=== PATIENT | female | born 1995 | race Caucasian/White ===

== ENCOUNTER 2023-08-10 16:48 | Emergency (ER) | payer OTHER, SELFPAY ==
--- NOTE | 2023-08-10 16:50 | ED.SKABFB ---
HPI - Skin/Abscess/Foreign Bdy General Chief complaint: Animal Bite Stated complaint: Cat Bite Right Arm Time Seen by Provider: 08/10/23 17:02 Source: patient and RN notes reviewed Mode of arrival: ambulatory Limitations: dementia History of Present Illness HPI narrative: 28-year-old female presents concern for cat bite to her right arm. She reports earlier today she was attempting to feed a stray cat when it ?attacked?. She has scratch arreaga and bite arreaga to her right arm. She reports 1 of the areas is surrounded by redness. She denies fever, body aches, chills, sweats complaint: other (Cat bite) Related Data Home Medications Medication Instructions Recorded Confirmed norgestimate 0.25 mg-ethinyl 1 tablet PO DAILY 08/10/23 08/10/23 estradiol 35 mcg tablet (Estarylla) Allergies Allergy/AdvReac Type Severity Reaction Status Date / Time prednisone Allergy Hives Verified 08/10/23 17:03 Review of Systems Review of Systems: CONSTITUTIONAL: Denies malaise, chills, sweats, or fever. EYES: Denies redness, or discharge. ENT: Denies rhinorrhea, congestion, swollen lips, swollen tongue CARDIOVASCULAR: Denies chest pain, palpitations, or edema. RESPIRATORY: Denies cough or dyspnea. GASTROINTESTINAL: Denies abdominal pain, nausea, vomiting SKIN: Reports redness, swelling around a cat bite on her right arm. Reports cat scratches on her right arm. Denies purulent drainage, vesicles, bullae, numbness, pain beyond proportion MUSCULOSKELETAL: Denies joint pain or myalgia. NEUROLOGIC: Denies headache. All systems reviewed & are unremarkable except as noted in HPI and below PMFSH Comments At time of signature, agree with nursing past medical, surgical, social and family history. There is no relevant family history pertinent to the presenting complaint Exam Narrative: GENERAL: Well-appearing, well-nourished, and in no acute distress. HEAD: Normocephalic, atraumatic. EYES: PERRLA, conjunctivae clear ENT: Mucous membranes moist. NECK: Supple. No lymphadenopathy CHEST: Clear to auscultation. No respiratory distress. HEART: Regular rate and rhythm. SKIN: Warm, dry. Puncture site on the right upper arm surrounded by approximate 3 cm of erythema, induration, warmth with sharp margins noted. Scattered scabbed to scratches noted to the right arm. No vesicles, bullae, necrosis, ecchymosis, crepitus noted. NEURO: Alert and oriented x3. PSYCH: Normal mood and affect Course Course Emergency Course: Patient was advised about seeking rabies vaccine if animal controlled unable to locate cat tomorrow. Patient is aware of diagnosis, understands and agrees to treatment plan. Anticipatory guidance given. Patient agrees to follow-up as directed and is aware of reasons to seek care at the emergency department. Portions of this record may have been created with voice recognition software Level of Care: Express Care Visit Vital Signs Vital signs: Reviewed. MDM - Skin/Abscess/Foreign Bdy MDM Narrative Medical decision making narrative: Does not appear at this time to be erythema multiforme, bullous, SJS, TEN; no evidence at this time to suggest RMSF, NSTI, endocarditis or Lyme disease; patient looks well, nontoxic and is tolerating oral intake; no neurologic signs or symptoms; no headache, photophobia or neck pain; afebrile. Patient does not have history of of penetrating trauma, laceration, blunt trauma, recent surgery, immunosuppression, malignancy, obesity, alcoholism, corticosteroid use. Discussed the importance of follow-up, patient agrees; question, cellulitis versus necrotizing soft tissue infection versus abscess. Critical Care Time Critical Care Time Critical Care Time: No Discharge Plan Discharge Clinical Impression: Cat bite Patient Disposition: Home, Self-Care Condition: Stable Instructions: Antibiotic Form, Animal Bite (ED) Additional Instructions: Call animal control in the morning. If
[2023-08-10 16:56] VITALS: BP 131/67; PULSE 68; RESP 14; TEMP 36.4; O2SAT 98
== END 2023-08-10 17:13 | disposition home or self-care (01) ==
PROVIDERS: Emergency Provider Nurse Practitioner
DX: S41.151A Open bite of right upper arm, initial encounter (principal); W55.01XA Bitten by cat, initial encounter; J45.909 Unspecified asthma, uncomplicated
CPT/HCPCS: 99213; G0463

== ENCOUNTER 2023-08-31 11:34 | Emergency (ER) | payer OTHER, SELFPAY ==
[2023-08-31] VITALS (7 sets, daily range): BP systolic 122–144; BP diastolic 62–89; PULSE 64–95; RESP 17–18; TEMP 36.7–37.4; O2SAT 96–100
--- NOTE | ~2023-08-31 | CT_ITS ---
EXAMINATION: CT abdomen pelvis w con INDICATION: Abdominal pain TECHNIQUE: Computed tomographic images of the abdomen and pelvis were obtained after the administrati on of 100 cc of Omnipaque 350 intravenous contrast. The dose-length product (DLP) was 285.69 mGy-cm. Automated exposure control and iterative reconstruction technique were employed. COMPARISON: None available FINDINGS: The lung bases are clear. The heart size is normal. Changes of cholecystectomy are noted. T he liver, spleen, pancreas, and adrenal glands are normal. The kidneys are unremarkable. No pathologi yamilet enlarged abdominal or pelvic lymph nodes are identified. No free intraperitoneal gas or evidenc e of bowel obstruction. There are changes of posterior fusion at T11-12 and L2 with a burst fracture of L1 noted. IMPRESSION: 1. No CT correlate for the patient's symptoms. Reviewed, dictated and finalized at location F. SCRAPER
--- NOTE | 2023-08-31 11:52 | ED.ABDPAIN ---
HPI - Abdominal Pain General Chief Complaint: Abdominal Pain Stated Complaint: vomiting/ abd pain Time Seen by Provider: 08/31/23 11:51 History of Present Illness HPI narrative: patient is a 28-year-old female with history of chronic back and neck pain after multiple prior fractures here today with abdominal pain. She states that the abdominal pains improvement for about 5-7 days. She notes that about 4 days ago she was seen at an outside emergency department and diagnosed with the UTI and started on an unknown antibiotic. She notes that she has been compliant with this antibiotic but continues to have abdominal pain. Abdominal pain seems he located in the suprapubic and mid abdominal regions, Is severe and she is tearful during history due to the pain. She has had associated vomiting as well as diarrhea. She denies any other sick contacts. She denies cough, congestion. She does note that she has been having a subjective fever but has not checked her temperature. she denies dysuria at this time. She has been compliant with her antibiotics at home. Related Data Home Medications Medication Instructions Recorded Confirmed norgestimate 0.25 mg-ethinyl 1 tablet PO DAILY 08/10/23 08/10/23 estradiol 35 mcg tablet (Estarylla) Allergies Allergy/AdvReac Type Severity Reaction Status Date / Time prednisone Allergy Hives Verified 08/10/23 17:03 Review of Systems Review of Systems: All systems reviewed & are unremarkable except as noted in HPI and below Exam Narrative: GENERAL: Well-appearing, well-nourished, and in no acute distress. HEAD: Normocephalic, atraumatic. EYES: PERRLA and EOMI. ENT: Nares clear. Mucous membranes moist. NECK: Supple. CHEST: Clear to auscultation. No respiratory distress. HEART: Regular rate and rhythm. Normal peripheral pulses. ABDOMEN: Soft, diffusely tender worse in the suprapubic and periumbilical regions, no rebound or guarding appreciated. bilateral CVA tenderness however she does note that she has chronic pain in this area due to her prior back surgeries. EXTREMITIES: Normal range of motion. No edema. SKIN: Warm, dry, no rash. NEURO: No focal deficits. Alert and oriented x3. PSYCH: Normal mood and affect. Course Course Emergency Course: Chart review performed. Patient is here for abdominal pain and vomiting. She was reportedly seen at outside hospital and diagnosed with UTI, discharged on antibiotics however I cannot see this visit in our system. Patient has one prior visit here in our department for a cat bite a few weeks ago. Triage vitals normal. Initial triage protocol lab work reviewed showing no leukocytosis, normal electrolytes, normal renal function, LFTs within normal limits. UA shows 6-10 WBC with rare bacteria. This could suggest a partially treated UTI as she is reportedly already on antibiotics. No UA comparison from prior to antibiotic administration. On review of her prior discharge paperwork it appears she is on Bactrim. CT negative. Will reevaluate. Patient re-evaluated, feeling much better. Will discharge on Levsin, ibuprofen, Zofran. Advised to continue taking her antibiotics. The results of pertinent diagnostic studies and exam findings were discussed. The patient?s provisional diagnosis and plan of care were discussed with the patient and present family. The patient and/or present family expressed understanding of the diagnosis and plan. The nurse was instructed to provide written instructions and appropriate follow-up information. The patient understands their need and responsibility to obtain additional follow-up as instructed. The risks of medications administered and prescribed were discussed with the patient and family present. Vital Signs Vital signs: Vital Signs Temperature 99.3 F 08/31/23 11:38 Pulse Rate 95 08/31/23 11:38 Respiratory Rate 17 08/31/23 11:38 Blood Pressure 144/89 H 08/31/23 11:38 Pulse Oximetry 97 08/31/23 11
[2023-08-31 11:54] LABS: Basophils Absolute Auto 0.1 K/mm3 (0.0-0.1); Basophils Percent Auto 0.6 % (0.2-1.2); Eosinophils Percent Auto 0.1 % (0-4.4); Hematocrit 44.5 % (37.0-47.0); Hemoglobin 14.8 g/dL (12.0-15.0); Immature Granulocyte Absolute 0.02 K/mm3 (0.00-0.031); Immature Granulocyte Percent A 0.2 % (0-0.5); Lymphocytes Absolute Auto 2.02 K/mm3 (0.9-3.2); Lymphocytes Percent Auto 23.6 % (18.3-44.2); Mean Corpuscular HGB Conc 33.3 g/dl (32-36); Mean Corpuscular Volume 90.3 fl (80-100); Mean Platelet Volume 8.8 fl (7.4-10.4); Monocytes Absolute Auto 0.6 K/mm3 (0.1-0.6); Monocytes Percent Auto 6.7 % (2.6-8.5); Neutrophils Absolute Auto 5.9 K/mm3 (1.3-6.7); Neutrophils Percent Auto 68.8 % (45.5-73.1); Platelet Count Result 441 k/mm3 (150-375); Red Blood Count 4.93 M/mm3 (4.2-5.4); White Blood Count 8.6 K/mm3 (4.5-10.0)
[2023-08-31 11:58] LABS: Appearance Urine Cloudy (Clear); Bacteria Urine Rare /hpf; Bilirubin Urine Negative (Negative); Blood Urine Negative (Negative); Color Urine Dark Yellow (Yellow); Glucose Urine UA Negative (Negative); Ketones Urine 1+ mg/dL (Negative); Leukocyte Esterase Ur Negative LEU/UL (Negative); Nitrate Urine Negative (Negative); Protein Urine 1+ mg/dL (Negative); RBC Urine 0-2 /hpf (0-2); Squamous Epithelial Cell Urine Moderate /hpf (Few)
[2023-08-31 12:06] LABS: Alanine Aminotransferase 21 U/L (6-35); Alkaline Phosphatase 91 U/L (38-126); Anion Gap 9 mmol/L (8-16); Aspartate Amino Transferase 22 U/L (14-36); Bilirubin,Total 1.3 mg/dL (0.2-1.3); Blood Urea Nitrogen 11 mg/dL (7-17); Calcium 9.8 mg/dL (8.4-10.2); Carbon Dioxide 28 mmol/L (22-30); Chloride 103 mmol/L (98-107); Estimated CRCL calculation 87 ml/min; Estimated Glomerular Filt Rate > 60; Glucose 123 mg/dL (65-110); Lipase 52 U/L (23-300); Potassium 3.7 mmol/L (3.4-5.0); Sodium 140 mmol/L (137-145)
[2023-08-31 12:12] LABS: Add Urine Microscopic? YES
[2023-08-31] MEDS: ONDANSETRON INJ 4 MG/2 ML VIAL IV PUSH (12:46)
[2023-08-31] MEDS: LACTATED RINGERS 1,000 ML 999 ML IV CONT (12:47)
[2023-08-31] MEDS: MORPHINE SULFATE (*CRX) 4 MG/ML INJ IV PUSH (12:47)
[2023-08-31] MEDS: PANTOPRAZOLE SODIUM IV 40 MG VIAL IV PUSH (12:47)
[2023-08-31] MEDS: diphenhydrAMINE HCl INJ 50 MG/ML VIAL 25 MG IV PUSH (13:10)
[2023-08-31 13:14] LABS: Influenza A QL RT-PCR Negative (Negative); Influenza B QL RT-PCR Negative (Negative); RSV RNA, RT-PCR Negative (Negative); SARS-CoV-2 RNA PCR Negative (Negative)
[2023-08-31] MEDS: HYDROmorphone HCL INJ (*CRX) 1 MG/ML SYR IV PUSH (13:34)
[2023-08-31] MEDS: DICYCLOMINE HCL INJ 20 MG/2 ML VIAL IM (14:01)
== END 2023-08-31 14:51 | disposition home or self-care (01) ==
PROVIDERS: Emergency Medicine; Emergency Provider Student in an Organized Health Care Education/Training Program
DX: R10.84 Generalized abdominal pain (principal); R11.2 Nausea with vomiting, unspecified; R19.7 Diarrhea, unspecified; N39.0 Urinary tract infection, site not specified; Z20.822 Contact with and (suspected) exposure to COVID-19
CPT/HCPCS: 36415; 74177; 80053; 81001; 81025; 83690; 85025; 87086; 87637; 96361; 96372; 96374; 96375; 99284; C9113; J0500; J1170; J1200; J2270; J2405; J7120; Q9967

== ENCOUNTER 2023-10-10 10:30 | Outpatient (CLI) | payer OTHER, SELFPAY ==
--- NOTE | ~2023-10-10 | XR_ITS ---
EXAMINATION:XR_[id number]_[id number] DATE: 10/10/2023 10:54 INDICATION: Neck pain TECHNIQUE: AP, lateral, lateral swimmers and odontoid views of the cervical spine are provided. COMPARISON: None FINDINGS: Alignment is normal. The odontoid process is intact. No fracture is identified. There are c hanges of anterior and posterior fusion from C5 through C7. There are corpectomy changes with mechani tavon replacement at C6. Prevertebral soft tissues are normal. IMPRESSION: 1. Surgical changes without acute findings identified. Reviewed, dictated and finalized at location F. SAFETY MANAGER
--- NOTE | ~2023-10-10 | XR_ITS ---
XR lumbar spine 2-3V DATE: 10/10/2023 10:54 INDICATION: Back pain. History of back surgery in 2020. TECHNIQUE: AP, lateral, coned lateral lumbosacral views COMPARISON: None FINDINGS: Status post posterior surgical fusion by Ran screws and rods at T11-L2. The pedicle scr ews are present bilaterally at T11, T12 and L2. Mild anterior wedge compression fracture deformity, likely chronic, at T10. There is prominent loss of height and anterior wedging due to burst fracture of L1 with up to 50% los s of height anteriorly. No fracture of the remainder of the lumbar spine. Moderate degenerative disc disease at T12-L1. Lumbar and lumbosacral interspaces appear relatively pr eserved. The sacroiliac joints are intact. Status post cholecystectomy. IMPRESSION: Mild anterior wedge compression fracture T10, likely chronic Chronic prominent burst fracture of L1 Status post posterior surgical fusion at T11-L2 Reviewed, dictated and finalized at location B. PRESIDENT QUALITY IMPROVEMENT
--- NOTE | ~2023-10-10 | XR_ITS ---
XR chest 2V DATE: 10/10/2023 10:54 INDICATION: Back pain. TECHNIQUE: PA and lateral views COMPARISON: None FINDINGS: Normal heart size. No hilar or mediastinal enlargement. No pulmonary infiltrate or consolid ation, pleural effusion or pulmonary vascular congestion or pneumothorax. Status post anterior and posterior cervical spine surgical fusion. Status post posterior thoracolumbar surgical fusion. Prominent probable burst fracture of L1 lumbar v ertebral body. IMPRESSION: No active cardiopulmonary disease Reviewed, dictated and finalized at location B. BASKET TOP MAKER
== END 2023-10-10 10:31 | disposition home or self-care (01) ==
PROVIDERS: Visit Provider Emergency Medicine
DX: S22.070A Wedge compression fracture of T9-T10 vertebra, initial encounter for closed fracture (principal); S32.011A Stable burst fracture of first lumbar vertebra, initial encounter for closed fracture; F17.210 Nicotine dependence, cigarettes, uncomplicated; X58.XXXA Exposure to other specified factors, initial encounter; Z98.1 Arthrodesis status
CPT/HCPCS: 71046; 72040; 72100

== ENCOUNTER 2023-10-16 09:27 | Emergency (ER) | payer OTHER, SELFPAY ==
[2023-10-16 09:28] VITALS: BP 147/109; PULSE 102; RESP 20; TEMP 36.9; O2SAT 100
[2023-10-16] MEDS: KETOROLAC 30 MG/ML VIAL (*BKC) IV PUSH (10:56)
[2023-10-16] MEDS: diazePAM INJ (*CRX) 10 MG/2 ML SYRINGE 5 MG IV PUSH (10:56)
[2023-10-16] MEDS: HYDROmorphone HCL INJ (*CRX) 1 MG/ML SYR IV PUSH (11:50)
[2023-10-16] MEDS: SODIUM CHLORIDE 0.9% IV 1,000 ML 999 ML IV CONT (11:50)
[2023-10-16 11:52] LABS: Basophils Absolute Auto 0.1 K/mm3 (0.0-0.1); Basophils Percent Auto 0.5 % (0.2-1.2); Eosinophils Absolute Auto 0.1 K/mm3 (0-0.3); Eosinophils Percent Auto 0.6 % (0-4.4); Hematocrit 42.6 % (37.0-47.0); Immature Granulocyte Absolute 0.05 K/mm3 (0.00-0.031); Immature Granulocyte Percent A 0.5 % (0-0.5); Lymphocytes Percent Auto 23.5 % (18.3-44.2); Mean Corpuscular HGB Conc 32.9 g/dl (32-36); Mean Corpuscular Hemoglobin 30.5 pg (26-34); Mean Corpuscular Volume 92.8 fl (80-100); Mean Platelet Volume 9.5 fl (7.4-10.4); Monocytes Absolute Auto 0.6 K/mm3 (0.1-0.6); Monocytes Percent Auto 5.7 % (2.6-8.5); Neutrophils Absolute Auto 7.1 K/mm3 (1.3-6.7); Neutrophils Percent Auto 69.2 % (45.5-73.1); Platelet Count Result 338 k/mm3 (150-375); Red Blood Count 4.59 M/mm3 (4.2-5.4); Red Cell Distribution Width 11.9 % (11.5-14.5); White Blood Count 10.2 K/mm3 (4.5-10.0)
[2023-10-16 12:06] LABS: Alanine Aminotransferase 26 U/L (6-35); Albumin Level 4.3 g/dL (3.5-5.1); Alkaline Phosphatase 90 U/L (38-126); Anion Gap 11 mmol/L (8-16); Aspartate Amino Transferase 28 U/L (14-36); Blood Urea Nitrogen 11 mg/dL (7-17); CRP < 0.5 mg/dL (<1.0); Calcium 9.3 mg/dL (8.4-10.2); Carbon Dioxide 24 mmol/L (22-30); Chloride 106 mmol/L (98-107); Estimated CRCL calculation 100 ml/min; Estimated Glomerular Filt Rate > 60; Glucose 139 mg/dL (65-110); Potassium 3.9 mmol/L (3.4-5.0); Sodium 141 mmol/L (137-145)
[2023-10-16 12:24] LABS: Erythrocyte Sedimentation Rate 12 mm/hr (0-20)
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
[2023-10-16] MEDS: GABAPENTIN 300 MG CAPSULE PO (13:30)
[2023-10-16 13:41] VITALS: BP 114/80; PULSE 85; RESP 16; O2SAT 98
== END 2023-10-16 13:43 | disposition home or self-care (01) ==
PROVIDERS: Emergency Provider Emergency Medicine; PCP Emergency Medicine
DX: G62.9 Polyneuropathy, unspecified (principal); M54.9 Dorsalgia, unspecified; G89.29 Other chronic pain
CPT/HCPCS: 36415; 80053; 85025; 85652; 86140; 99283; A9270; J1170; J1885; J3360; J7030

== ENCOUNTER 2023-11-24 18:38 | Emergency (ER) | payer OTHER, SELFPAY ==
[2023-11-24 18:52] VITALS: BP 139/66; PULSE 90; RESP 16; TEMP 37.1; O2SAT 100
--- NOTE | 2023-11-24 19:41 | ED.URI ---
HPI - URI/Sore Throat General Chief Complaint: Upper Respiratory Infection Stated Complaint: Cold symptoms Time Seen by Provider: 11/24/23 19:32 Source: patient and RN notes reviewed Mode of arrival: ambulatory Limitations: no limitations History of Present Illness HPI Narrative: Patient presents today complaining of congestion, bilateral ear pain, cough, sore throat, shortness of breath. Symptoms began today. Denies fever. She has tried Mucinex and DayQuil as well as her albuterol inhaler. States the albuterol inhaler has been helpful. History of asthma. States she is allergic to prednisone. Related Data Home Medications Medication Instructions Recorded Confirmed norgestimate 0.25 mg-ethinyl 1 tablet PO DAILY 08/10/23 08/10/23 estradiol 35 mcg tablet (Estarylla) albuterol 11/24/23 duloxetine 30 mg capsule,delayed mg PO 11/24/23 release Allergies Allergy/AdvReac Type Severity Reaction Status Date / Time cyclobenzaprine AdvReac Nausea and Verified 10/16/23 09:55 [From Flexeril] Vomiting prednisone AdvReac Hives Verified 10/16/23 09:55 Review of Systems Review of Systems: CONSTITUTIONAL: Denies body aches, fever, chills, or sweats. EYES: Denies visual changes, redness, or discharge. ENT: Denies rhinorrhea. + congestion, bilateral ear pain, sore throat CARDIOVASCULAR: Denies chest pain, palpitations, or edema. RESPIRATORY:+ cough, shortness of breath GASTROINTESTINAL: Denies abdominal pain, nausea, vomiting, or diarrhea. GENITOURINARY: Denies dysuria or hematuria. SKIN: Denies rash, itching, or wounds. MUSCULOSKELETAL: Denies back pain, joint pain, or myalgia. NEUROLOGIC: Denies headache, numbness, tingling, or weakness. PSYCH: Denies depression or anxiety. [facility] Past Medical History Medical History (Updated 11/24/23 @ 19:46 by Susana Jansen, SHAHANA, JEANNINE) Asthma Healthy female adult Surgical History Surgical History H/O neck surgery History of back surgery Comments At time of signature, I have reviewed and agree with nursing past medical, surgical, social and family history unless otherwise noted. Please see nursing chart for further information. There is no relevant family history pertinent to the presenting complaint Exam Narrative: GENERAL: Well-appearing, well-nourished, and in no acute distress. HEAD: Normocephalic, atraumatic. EYES: EOMI. No redness or drainage. Conjunctivae normal. ENT: Mucous membranes pink and moist. Nares congested. No rhinorrhea. TMs normal bilaterally. Throat normal. Uvula midline. NECK: Normal AROM. Supple. No lymphadenopathy. CHEST: No respiratory distress. Clear to auscultation. HEART: Regular rate and rhythm. No murmur appreciated. EXTREMITIES: Normal range of motion. No edema. SKIN: Warm, dry, no rash. Capillary refill normal. Normal skin turgor. NEURO: No focal deficits. Alert and oriented x3. Gait steady. PSYCH: Normal affect. No signs of depression or anxiety. Course Course Level of Care: Express Care Visit Vital Signs Vital signs: Vital Signs Temperature 98.8 F 11/24/23 18:52 Pulse Rate 90 11/24/23 18:52 Respiratory Rate 16 11/24/23 18:52 Blood Pressure 139/66 11/24/23 18:52 Pulse Oximetry 100 11/24/23 18:52 Oxygen Delivery Room Air 11/24/23 18:52 Temperature 98.8 F 11/24/23 18:52 Pulse Rate 90 11/24/23 18:52 Respiratory Rate 16 11/24/23 18:52 Blood Pressure 139/66 11/24/23 18:52 Pulse Oximetry 100 11/24/23 18:52 Oxygen Delivery Room Air 11/24/23 18:52 Reviewed MDM - URI/Sore Throat MDM Narrative Medical decision making narrative: Testing negative. Will refill patient's albuterol inhaler. Symptoms likely viral. Discussed [id number] medication and duration of illness. Anticipatory guidance given. Differential Diagnosis Differential diagnosis: Likely upper respiratory infection, viral infection,
== END 2023-11-24 19:50 | disposition home or self-care (01) ==
PROVIDERS: Emergency Provider Nurse Practitioner; PCP Emergency Medicine
DX: J06.9 Acute upper respiratory infection, unspecified (principal); J45.901 Unspecified asthma with (acute) exacerbation; Z20.822 Contact with and (suspected) exposure to COVID-19
CPT/HCPCS: 87081; 87426; 87804; 87880; 99213; G0463

== ENCOUNTER 2024-01-26 16:43 | Emergency (ER) | payer OTHER, SELFPAY ==
[2024-01-26 16:52] VITALS: BP 161/83; PULSE 113; RESP 16; TEMP 36.3; O2SAT 97
--- NOTE | 2024-01-26 17:29 | ED.EAR ---
HPI - Ear Problem General Chief complaint: Skin/Abscess/Foreign Body Stated complaint: left pinky finger/left ear Source: patient Mode of arrival: ambulatory Limitations: no limitations History of Present Illness HPI Narrative: 29 y/o female presented for c/o right ear pressure x one week. Denies significant pain, reports hearing is muffled. denies ear drainage, tinnitus, dizziness, nausea, vomiting, fevers or chills. Taking tylenol and aleve. Pt also here for left little finger sore and pain. Onset one month, was told by [facility] she might have MRSA infection. States 2 days ago she bumped it and then it drained yellow pus and the skin has been peeling. Continues to have pain to the finger tip described as pulsing and rates 9/10. MD Complaint: ear pain Related Data Home Medications Medication Instructions Recorded Confirmed albuterol sulfate 90 mcg/actuation 2 puff inhalation QID PRN sob 01/26/24 01/26/24 aerosol inhaler desogestrel 0.15 mg-ethinyl See Rx Instructions .Route .COMPLEX 01/26/24 01/26/24 estradiol 0.03 mg tablet (Isibloom) Allergies Allergy/AdvReac Type Severity Reaction Status Date / Time cyclobenzaprine AdvReac Nausea and Verified 01/26/24 16:55 [From Flexeril] Vomiting prednisone AdvReac Hives Verified 01/26/24 16:55 Review of Systems Review of Systems: CONSTITUTIONAL: Denies malaise, chills, or fever. EYES: Denies visual changes, redness, or discharge. ENT: Denies rhinorrhea, congestion, sinus pain, and sore throat. Reports ear pain CARDIOVASCULAR: Denies chest pain, palpitations, or edema. RESPIRATORY: Denies cough or dyspnea. GASTROINTESTINAL: Denies abdominal pain, nausea, vomiting, diarrhea SKIN: reports little finger wound MUSCULOSKELETAL: Denies myalgia. NEUROLOGIC: Denies headache. All systems reviewed & are unremarkable except as noted in HPI and below PMFSH Past Medical History Medical History Asthma Healthy female adult Surgical History Surgical History H/O neck surgery History of back surgery Comments At time of signature, agree with nursing past medical, surgical, social and family history. There is no relevant family history pertinent to the presenting complaint Exam Narrative: GENERAL: Well-appearing EYES: PERRLA, conjunctivae clear ENT: Nares clear. Mucous membranes moist. left TM pearly haley with dull light reflex right TM mildly erythematous with clear effusion; no tragal tenderness. Oropharynx not erythematous without lesions. Tonsils not enlarged and without exudate, no drooling, no hoarseness, no trismus, uvula midline. NECK: Supple. No lymphadenopathy CHEST: Clear to auscultation, breath sounds equal. No wheezing, rhonchi, rales, or stridor. No respiratory distress, speaks in full sentences. HEART: Regular rate and rhythm. No murmur heard. SKIN: Warm, dry, Left 5th digit distal phalanx with peeling dry flaky skin, area of erythema near nail bed; nail cut to approx half the size, no active drainage , fluctuance, or swelling, site is tender NEURO: Alert and oriented x3. PSYCH: became tearful during encounter states she feels exhausted Course Course Emergency Course: Patient is aware of diagnosis, understands and agrees to treatment plan. Anticipatory guidance given. Patient agrees to follow-up as directed and is aware of reasons to seek care at the emergency department. Portions of this record may have been created with voice recognition software Level of Care: Express Care Visit Vital Signs Vital signs: Vital Signs Temperature 97.4 F L 01/26/24 16:52 Pulse Rate 113 H 01/26/24 16:52 Respiratory Rate 16 01/26/24 16:52 Blood Pressure 161/83 H 01/26/24 16:52 Pulse Oximetry 97 01/26/24 16:52 Oxygen Delivery Room Air 01/26/24 16:52 Temperature 97.4 F L 01/26/24 16:52 Pulse Rate 113 H 01/26/24 16:52 Respir
== END 2024-01-26 17:45 | disposition home or self-care (01) ==
PROVIDERS: Emergency Provider Nurse Practitioner Family; PCP Emergency Medicine
DX: H65.02 Acute serous otitis media, left ear (principal); J45.909 Unspecified asthma, uncomplicated
CPT/HCPCS: 99213; G0463

== ENCOUNTER 2024-04-21 10:42 | Emergency (ER) | payer OTHER, SELFPAY ==
--- NOTE | ~2024-04-21 | CT_ITS ---
CT of the Abdomen and Pelvis: Indication: Abdominal pain Technique: 2.5 mm axial scans were obtained through the abdomen and pelvis following intravenous adm inistration of 100 cc of Omnipaque 350. Dose reduction technique was used on this scan by utilizing a utomated exposure control and iterative reconstruction technique. The dose-length product (DLP) was 2 48.97 mGy-cm. COMPARISON: 08/31/2023 Findings: Scans through the lung bases are unremarkable. The liver, spleen, pancreas, adrenals and kidneys are within normal limits. Cholecystectomy clips are present. No evidence of aortic aneurysm. No lymphadenopathy. No bowel obstruction or bowel wall thickening. There is no evidence to suggest acute appendicitis. Images through the pelvis were performed. Urinary bladder unremarkable. No pelvic mass seen. No ascit es. There is L1 compression fracture, with surrounding posterior thoracolumbar spinal fixation delon re. Impression: No acute abnormality. Reviewed, dictated and finalized at [facility]. Impression: No acute abnormality.
[2024-04-21 10:44] VITALS: BP 138/77; PULSE 82; RESP 16; TEMP 36.4; O2SAT 100
[2024-04-21 11:57] LABS: Basophils Percent Auto 0.6 % (0.2-1.2); Eosinophils Absolute Auto 0.1 K/mm3 (0-0.3); Eosinophils Percent Auto 0.8 % (0-4.4); Hematocrit 39.3 % (37.0-47.0); Hemoglobin 13.3 g/dL (12.0-15.0); Immature Granulocyte Absolute 0.01 K/mm3 (0.00-0.031); Immature Granulocyte Percent A 0.2 % (0-0.5); Lymphocytes Absolute Auto 2.48 K/mm3 (0.9-3.2); Mean Corpuscular HGB Conc 33.8 g/dl (32-36); Mean Corpuscular Hemoglobin 30.8 pg (26-34); Mean Platelet Volume 9.7 fl (7.4-10.4); Monocytes Absolute Auto 0.4 K/mm3 (0.1-0.6); Neutrophils Absolute Auto 3.6 K/mm3 (1.3-6.7); Neutrophils Percent Auto 54.4 % (45.5-73.1); Platelet Count Result 353 k/mm3 (150-375); Red Blood Count 4.32 M/mm3 (4.2-5.4); Red Cell Distribution Width 12.2 % (11.5-14.5); White Blood Count 6.5 K/mm3 (4.5-10.0)
[2024-04-21 12:07] LABS: Alanine Aminotransferase 18 U/L (6-35); Albumin Level 4.4 g/dL (3.5-5.1); Alkaline Phosphatase 72 U/L (38-126); Anion Gap 10 mmol/L (4-12); Aspartate Amino Transferase 25 U/L (14-36); Bilirubin,Total 0.7 mg/dL (0.2-1.3); Blood Urea Nitrogen 11 mg/dL (7-17); Carbon Dioxide 26 mmol/L (22-30); Chloride 102 mmol/L (98-107); Estimated CRCL calculation 111 ml/min; Estimated Glomerular Filt Rate > 60; Glucose 99 mg/dL (65-110); Lipase 51 U/L (23-300); Potassium 4.1 mmol/L (3.4-5.0); Sodium 138 mmol/L (137-145)
--- NOTE | 2024-04-21 12:50 | ED.ABDPAIN ---
HPI - Abdominal Pain General Chief Complaint: Abdominal Pain Stated Complaint: abd pain Time Seen by Provider: 04/21/24 11:24 Source: patient and other (PCP Dr Cordova) Mode of arrival: ambulatory Limitations: no limitations History of Present Illness HPI narrative: Primary care physician Dr. Rutherford it had given provider report prior to patient's arrival. Noted that patient had been having right lower quadrant pain for which she had yesterday and had been encouraged to present to the emergency department at that time. Patient had declined and he had recommended that she come into clinic today to be seen. He is subsequently recommended she present to emergency department for continued workup. Patient has been having abdominal pain, initially at the umbilicus in subsequently traveling to the right lower quadrant. She states it is worse with walking worse with cough. Symptoms have been occurring over the past 3 days but are getting worse. She denies any fever. She has no appetite. She has been nauseated and had 5 episodes emesis yesterday that were nonbloody but questionably bilious as she states they were dark green. Her last bowel movement yesterday was loose but formed. She continues to pass flatus. She denies any vaginal discharge or bleeding. No history of sexually transmitted infections. Last menstrual period 2 weeks ago.. Related Data Home Medications Medication Instructions Recorded Confirmed albuterol sulfate 90 mcg/actuation 2 puff inhalation QID PRN sob 01/26/24 01/26/24 aerosol inhaler desogestrel 0.15 mg-ethinyl See Rx Instructions .Route .COMPLEX 01/26/24 01/26/24 estradiol 0.03 mg tablet (Isibloom) Allergies Allergy/AdvReac Type Severity Reaction Status Date / Time cyclobenzaprine AdvReac Nausea and Verified 04/21/24 12:16 [From Flexeril] Vomiting prednisone AdvReac Hives Verified 04/21/24 12:16 PMFSH Past Medical History Medical History Asthma Healthy female adult Surgical History Surgical History H/O neck surgery History of back surgery Exam Narrative: GENERAL: Well-appearing, well-nourished, in mild acute distress. HEAD: Normocephalic, atraumatic. EYES: Non injected, non icteric ENT: Nares clear, no rhinorrhea or epistaxis. NECK: Supple. CHEST: Speaking in full sentences. No respiratory distress. HEART: Regular rate and rhythm. . ABDOMEN: Soft, nondistended. Tenderness at the right lower quadrant without rebound tenderness. Negative Rovsing sign. EXTREMITIES: Normal range of motion. No edema. SKIN: Warm, dry, no rash. NEURO: No focal deficits. Alert and oriented x3. PSYCH: Congruent mood and affect, tearful. Course Vital Signs Vital signs: Vital Signs Temperature 97.6 F 04/21/24 10:44 Pulse Rate 82 04/21/24 10:44 Respiratory Rate 16 04/21/24 10:44 Blood Pressure 138/77 04/21/24 10:44 Pulse Oximetry 100 04/21/24 10:44 Oxygen Delivery Room Air 04/21/24 10:44 Temperature 97.6 F 04/21/24 10:44 Pulse Rate 58 L 04/21/24 15:50 Respiratory Rate 16 04/21/24 15:50 Blood Pressure 130/93 H 04/21/24 15:50 Pulse Oximetry 97 04/21/24 15:50 Oxygen Delivery Room Air 04/21/24 10:44 MDM - Abdominal Pain MDM Narrative Medical decision making narrative: Patient presents from her primary care physician's clinic who had seen her via telehealth appointment yesterday and in clinic today concern for right lower quadrant pain. In the emergency department they are afebrile with vital signs within normal limits. Garcia Score RLQ tenderness (No 0, Yes +2): 2 Temp greater than37.3C (No 0, Yes +1): 0 Rebound tenderness (No 0, Yes +1): 0 Migration of pain to the RLQ (No 0, Yes +1): 1 Anorexia (No 0, Yes +1): 1 Nausea/vomiting (No 0, Yes +1): 1 Leukocytosis greater than 10K (No 0, Yes +2): 0 Leukocyte left shift greater than 75% ne
[2024-04-21] MEDS: SODIUM CHLORIDE 0.9% IV 1,000 ML 999 ML IV CONT ×2 (13:01→14:35)
[2024-04-21] MEDS: MORPHINE SULFATE (*CRX) 4 MG/ML INJ IV PUSH (13:01)
[2024-04-21] MEDS: ONDANSETRON INJ 4 MG/2 ML VIAL IV PUSH (13:01)
[2024-04-21 13:07] LABS: BEDSIDEPREGUCG Negative
[2024-04-21 13:12] LABS: Add Urine Microscopic? NO; Appearance Urine Clear (Clear); Bilirubin Urine Negative (Negative); Blood Urine Negative (Negative); Color Urine Yellow (Yellow); Glucose Urine UA Negative (Negative); Ketones Urine Negative (Negative); Leukocyte Esterase Ur Negative LEU/UL (Negative); Nitrate Urine Negative (Negative); Protein Urine Negative (Negative); pH Urine 6.5 (5.0-9.0)
[2024-04-21 14:30] LABS: Trichomonas Vag PCR NOT DETECTED (NOT DETECTE)
[2024-04-21] MEDS: PSYLLIUM POWDER PACKET 1 PACKET PO (14:34)
[2024-04-21] MEDS: DICYCLOMINE HCL 10 MG CAPSULE PO (14:34)
[2024-04-21] MEDS: ACETAMINOPHEN 500 MG TABLET 1000 MG PO (14:34)
[2024-04-21] MEDS: KETOROLAC 15 MG/ML VIAL (*BKC) IV PUSH (14:35)
[2024-04-21 14:52] LABS: Chlamydia trachomatis NOT DETECTED (NOT DETECTE); Neisseria gonorrhoeae PCR NOT DETECTED (NOT DETECTE)
[2024-04-21 15:50] VITALS: BP 130/93; PULSE 58; RESP 16; O2SAT 97
== END 2024-04-21 15:50 | disposition home or self-care (01) ==
PROVIDERS: Emergency Provider Student in an Organized Health Care Education/Training Program; PCP Emergency Medicine
DX: R10.31 Right lower quadrant pain (principal); K59.00 Constipation, unspecified; J45.909 Unspecified asthma, uncomplicated
CPT/HCPCS: 36415; 74177; 80053; 81003; 81025; 83690; 85025; 87491; 87591; 87661; 96361; 96374; 96375; 99284; A9270; J1885; J2270; J2405; J7030; Q9967

== ENCOUNTER 2024-09-24 17:19 | Emergency (ER) | payer OTHER, SELFPAY ==
[2024-09-24 17:24] VITALS: BP 148/84; PULSE 81; RESP 16; TEMP 37.6; O2SAT 98
--- NOTE | 2024-09-24 17:58 | ED_ITS ---
HPI - Dental/Oral General Chief complaint: Dental/Oral Stated complaint: dental pain Source: patient Mode of arrival: ambulatory History of Present Illness HPI Narrative: 29 year female presented for complaint of left upper dental pain following an extraction approximately 2 weeks ago. She states she had a 5 day course of antibiotics prior to the extraction. Since then she has noticed yellow/ white pus from the site, pain and mild swelling. Taking Tylenol and ibuprofen without improvement. Unable to make an appointment with her dentist until 10/11. Complaint: tooth pain Related Data Home Medications ?Medication ?Instructions ?Recorded ?Confirmed ?Last Taken ?Type desogestrel 0.15 mg-ethinyl See Rx Instructions .Route .COMPLEX 01/26/24 01/26/24 Unknown History estradiol 0.03 mg tablet (Isibloom) Allergies Allergy/AdvReac Type Severity Reaction Status Date / Time cyclobenzaprine (From AdvReac Nausea and Verified 09/24/24 17:29 Flexeril) Vomiting prednisone AdvReac Hives Verified 09/24/24 17:29 Review of Systems Review of Systems: CONSTITUTIONAL: Denies body aches, fever, chills ENT: Denies rhinorrhea, congestion, sore throat, or otalgia. Reports dental pain CARDIOVASCULAR: Denies chest pain, palpitations RESPIRATORY: Denies cough or dyspnea. SKIN: Denies rash, itching, or wounds. MUSCULOSKELETAL: Denies myalgia. NEUROLOGIC: Denies headache, numbness, tingling, or weakness. [facility] Past Medical History Medical History Asthma Healthy female adult Surgical History Surgical History History of back surgery H/O neck surgery Comments At time of signature, I have reviewed and agree with nursing past medical, surgical, social and family history unless otherwise noted. Please see nursing chart for further information. There is no relevant family history pertinent to the presenting complaint Exam Narrative: GENERAL: Appears in pain; no acute distress. HEAD: Normocephalic, atraumatic. EYES: EOMI. No redness or drainage. Conjunctivae normal. ENT: Dental pain location of #11, minimal gum swelling, no active drainage, site appears healing. Site is tender with light palpation. Poor dentition throughout. Mucous membranes pink and moist. TMs normal bilaterally. Throat normal. no dysphagia, odynophagia, dysphonia, or dyspnea. No uvular deviation or soft palate edema. NECK: Normal AROM. No lymphadenopathy. no induration below mandible, no neck pain. CHEST: No respiratory distress. Clear to auscultation. HEART: Regular rate and rhythm. No murmur appreciated. SKIN: Warm, dry, no rash. Normal skin turgor. NEURO: No focal deficits. Alert and oriented x3. Gait steady. Course Course Emergency Course: Patient is aware of diagnosis, understands and agrees to treatment plan. Anticipatory guidance given. Patient agrees to follow-up as directed and is aware of reasons to seek care at the emergency department. Portions of this record may have been created with voice recognition software Level of Care: Express Care Visit Vital Signs Vital signs: Vital Signs Temperature 99.7 F H 09/24/24 17:24 Pulse Rate 81 09/24/24 17:24 Respiratory Rate 16 09/24/24 17:24 Blood Pressure 148/84 H 09/24/24 17:24 Pulse Oximetry 98 09/24/24 17:24 Oxygen Delivery Room Air 09/24/24 17:24 Temperature 99.7 F H 09/24/24 17:24 Pulse Rate 81 09/24/24 17:24 Respiratory Rate 16 09/24/24 17:24 Blood Pressure 148/84 H 09/24/24 17:24 Pulse Oximetry 98 09/24/24 17:24 Oxygen Delivery Room Air 09/24/24 17:24 MDM - Dental/Oral MDM Narrative Medical decision making narrative: Patients pain and complaint coupled with physical findings are consistent with dentalgia. Rx abx.There are no focal signs of space occupying lesions that are compromising to the airway; Patient is non-toxic appearing. The floor of the mouth is soft with no signs of Al's Angina; Patient is without trismus or drooling and able to swallow secretions. Discussed physical exam findings. Advised supportive measures and signs/symptoms to go to the ER. Patient is felt appropriate for discharge home with dental follow up. Discharge Plan Discharge Clinical Impression: Toothache Patient Disposition: Home, Self-Care Condition: Stable Instructions: Antibiotic Form, Dental Abscess (ED) Additional Instructions: Take antibiotic as directed May apply heat or ice to the face Gentle brushing and flossing. Rinse mouth with warm salt water at least 2 times a day. Alternate Tylenol and ibuprofen as needed for pain Follow-up with the dentist as soon as possible Go to the ER for worsening symptoms or concerns Patient Language: Macedonian Prescriptions: New lidocaine HCl [Lidocaine Viscous] 2 % solution 1 applic mucous membrane TID PRN (Reason: pain) Qty: 100 0RF Rx Instructions: apply with cotton swab to site of pain amoxicillin-pot clavulanate 875-125 mg tablet 1 tablet PO Q12H 7 Days Qty: 14 0RF No Action desogestrel-ethinyl estradiol [Isibloom] 0.15-0.03 mg tablet See Rx Instructions .ROUTE .COMPLEX Rx Instructions: as prescribed ibuprofen 600 mg tablet 600 mg PO TID PRN (Reason: pain) Qty: 20 0RF acetaminophen 500 mg capsule 1,000 mg PO Q6H PRN (Reason: pain) Qty: 20 0RF polyethylene glycol 3350 [Miralax] 17 gram/dose powder 17 g PO DAILY Qty: 119 0RF Follow-up/Referrals: Shiv Cordova MD [Primary Care Provider] - Time of Disposition: 18:05
== END 2024-09-24 18:10 | disposition home or self-care (01) ==
PROVIDERS: Emergency Provider Nurse Practitioner Family; PCP Emergency Medicine
DX: K08.89 Other specified disorders of teeth and supporting structures (principal); J45.909 Unspecified asthma, uncomplicated
CPT/HCPCS: 99213; G0463